=== PATIENT | male | born 1970 | race Caucasian/White ===

== ENCOUNTER → 2017-01-01 | Outpatient (CLI) | payer SELFPAY ==
--- NOTE | 2017-01-01 09:49 | CT ---
EXAMINATION TYPE: CT heart w calcium score DATE OF EXAM: 01/01/2017 8:51 AM COMPARISON: NONE HISTORY: Screening for cardiovascular disorder. 213.9 CT DLP: 67.2 mGycm Automated exposure control for dose reduction was used. CT CALCIUM SCORING Coronary calcium is a marker for plaque (fatty deposits) in a blood vessel or atherosclerosis (harden ing of the arteries). The presence and amount of calcium detected in a coronary artery by the CT sca n, indicates the presence and amount of atherosclerotic plaque. These calcium deposits appear years before the development of heart disease symptoms such as chest pain and shortness of breath. A calcium score is computed for each of the coronary arteries based upon the volume and density of th e calcium deposits. This can be referred to as your calcified plaque burden. It does not correspond directly to the percentage of narrowing in the artery but does correlate with the severity of the un derlying coronary atherosclerosis. PROCEDURE TECHNIQUE - Prospective Gating was used. Slice thickness: 3mm. Density threshold (HU): 130, Pixel threshold: 3, Algorithm: discrete. RESULTS Region: LM Calcium Score ([place]at[place]): 0 Volume (mm3): 0 Mass (g): 0 Region: RCA Calcium Score ([place]at[place]): 0 Volume (mm3): 0 Mass (g): 0 Region: LAD Calcium Score ([place]at[place]): 0 Volume (mm3): 0 Mass (g): 0 Region: CX Calcium Score ([place]at[place]): 15 Volume (mm3): 15 Mass (g): 3.66 Region: PDA Calcium Score ([place]): NA Volume (mm3): NA Mass (g): NA Region: Other1 Calcium Score ([place]): NA Volume (mm3): NA Mass (g): NA Region: Other2 Calcium Score ([place]): NA Volume (mm3): NA Mass (g): NA Region: Other 3 Calcium Score ([place]at[place]): NA Volume (mm3): NA Mass (g): NA Total: Calcium Score (Agatston): 15 Volume (mm3): 15 Mass (g): 3.66 TOTAL CALCIUM SCORE: 15 OTHER: The lungs are clear. Visualized mediastinum is unremarkable. IMPRESSION: Calcium Score: Calcium score 15 Implication: definite at least mild atherosclerotic plaque. Risk of Coronary Artery Disease: Mild or minimal coronary narrowings likely.
== END | disposition home or self-care (01) ==
LOC: RADXRMAIN 07:39
PROVIDERS: ATTEND Radiology Diagnostic Radiology
DX: Z53.9 Procedure and treatment not carried out, unspecified reason (principal)

== ENCOUNTER → 2018-09-10 | Outpatient (CLI) | payer BC ==
--- NOTE | 2018-09-10 14:12 | MR ---
EXAMINATION TYPE: MR knee LT wo con DATE OF EXAM: 09/10/2018 COMPARISON: None HISTORY: 48-year-old male Left knee pain TECHNIQUE: Multiplanar, multisequence imaging of the left knee is performed without IV contrast. FINDINGS: There is ACL rupture. Corresponding bone bruises of pivot shift injury with small area of focal edema along the mid lateral femoral condyle and impaction injury along the posterior lip of the lateral ti bial plateau. There is extensive soft tissue thickening and edema along the MCL. Superficial MCL fibers remain inta ct. The PCL is intact. There is tear with hemorrhage and edema involving the popliteus muscle and fluid tracking posterior t o the popliteus muscle and tip of the fibular head. However, there is no abnormal edema involving the fibular head itself. The conjoined tendon including the true LCL and the biceps femoris tendon are i ntact. Iliotibial band insertion is intact. The proximal popliteal tendon is intact. Lateral meniscus and lateral compartment articular cartilage are maintained. There is a large bucket-handle tear of the medial meniscus with flipped fragment located centrally ad jacent to the torn ACL. There is minimal superficial cartilage irregularity along the mid weightbeari ng aspect of the medial femoral condyle and moderate focal irregular cartilage loss along the mid ant erior aspect of the medial femoral condyle measuring 7 x 8 mm. The patellofemoral compartment articular cartilage is maintained. [id number] knee joint effusion with prominent tracking deep soft tissue edema. Additional supe rficial soft tissue swelling especially anteriorly along the knee. No sizable Dumont's cyst. Extensor mechanism remains intact but with areas of tendinosis along the quadriceps tendon. Minimal i ntrasubstance tearing at the insertion is noted, for example, coronal PD FS image 4. Normal popliteal artery anatomy and muscle bulk. No suspicious bone marrow replacement. IMPRESSION: 1. Kissing contusions of pivot shift injury and corresponding ACL rupture. 2. Moderate strain with tear and hemorrhage involving the popliteus muscle and prominent fluid tracki ng behind the popliteus muscle and tip of the fibular head. Underlying posterolateral corner injury i s suggested. The LCL proper and biceps femoris remain intact. 3. Grade 2 MCL sprain. 4. Large bucket-handle tear medial meniscus with flipped fragment located centrally. 5. Small to moderate knee joint effusion and extensive deep and superficial soft tissue swelling. 6. Insertional quadriceps tendinosis. 7. A focal 8 mm area of moderate chondromalacia along the mid anterior aspect of the medial femoral c ondyle relating to mild overall degenerative change in the medial compartment.
== END | disposition home or self-care (01) ==
LOC: RADMRIMAIN 12:51
PROVIDERS: ATTEND Radiology Diagnostic Radiology
DX: S83.412A Sprain of medial collateral ligament of left knee, initial encounter (principal); S83.212A Bucket-handle tear of medial meniscus, current injury, left knee, initial encounter; M17.12 Unilateral primary osteoarthritis, left knee; M94.262 Chondromalacia, left knee; M76.892 Other specified enthesopathies of left lower limb, excluding foot

== ENCOUNTER 2019-02-04 14:33 | Day surgery (SDC) | payer BC ==
--- NOTE | 2019-02-03 17:02 | HP ---
HISTORY AND PHYSICAL DATE OF SURGERY: 02/04/2019 Seymour Sylvester is a 48-year-old patient seen with a displaced right ankle medial malleolar fracture. I recommended open reduction, internal fixation. Procedure, risks, complications, benefits and recovery were discussed. He was agreeable. Consent was obtained. PAST MEDICAL HISTORY: Noncontributory. SURGICAL HISTORY: Noncontributory. DAILY MEDICATIONS: None. ALLERGIES: NONE. SOCIAL HISTORY: Denies tobacco use. PHYSICAL EVALUATION OF RIGHT ANKLE: There are abrasions along the medial and lateral aspects of the ankle, superficial, with no evidence of any erythema or infective process. There is diffuse ecchymosis. There is tenderness along the medial malleolus, mild to moderate swelling diffusely about the ankle. Limited range of motion. Ankle has some pain. He is able to move his toes with no pain. There is a good perfusion sensation distally. RADIOGRAPHS: Radiographs of the right ankle revealed a displaced medial malleolar fracture. IMPRESSION: Displaced right ankle medial malleolar fracture. PLAN: Open reduction, internal fixation, right ankle medial malleolar fracture. MMODL / IJN: [id number] /
[2019-02-04] MEDS ORDERED: LIDOCAINE 1% 20 ML VIAL (10MG/ML) FOR IV START INTRADERMA PRN (15:02)
[2019-02-04] MEDS ORDERED: ONDANSETRON 4 MG/2 ML VIAL IVP ONE (15:02)
[2019-02-04] MEDS ORDERED: HYDROmorphone 0.5 MG/0.5 ML SYRINGE IVP PRN (15:02)
[2019-02-04] MEDS ORDERED: LACTATED RINGERS 1,000 ML IV SCH (15:02)
[2019-02-04] MEDS ORDERED: SCOPOLAMINE 1.5MG/72HR PATCH TRANSDERM ONE (15:02)
[2019-02-04] MEDS ORDERED: MIDAZOLAM 2 MG/2 ML VIAL IV PRN (15:02)
[2019-02-04] MEDS ORDERED: DEXAMETHASONE SOD PHOSPHATE 10 MG/ML 1 ML VIAL IV ONE (15:02)
[2019-02-04] MEDS ORDERED: LIDOCAINE 1% INJ 10MG/ML (20 ML MDV) ONE (15:22)
[2019-02-04] MEDS ORDERED: PROPOFOL 10 MG/ML 20 ML VIAL IV ONE (15:22)
[2019-02-04] MEDS ORDERED: fentaNYL (PF) 50 MCG/ML 2 ML AMP ONE (15:22)
[2019-02-04] MEDS ORDERED: MIDAZOLAM 2 MG/2 ML VIAL ONE (15:22)
[2019-02-04] MEDS ORDERED: KETOROLAC 30 MG/ML 1 ML VIAL ONE (15:22)
[2019-02-04] MEDS ORDERED: fentaNYL (PF) 50 MCG/ML 2 ML AMP IVP ONE (15:30)
[2019-02-04] MEDS ORDERED: BUPIVACAINE (PF) 0.5% 30 ML VIAL SQ ONE (16:20)
[2019-02-04] MEDS ORDERED: LACTATED RINGERS 1,000 ML IV ONE (16:20)
[2019-02-04] MEDS ORDERED: NEOMYCIN-BACITRACIN-POLY OINT 14 GM TUBE TOPICAL ONE (16:25)
--- NOTE | 2019-02-04 16:38 | P.PN ---
Progress Note - Text Progress Note Date: 02/04/19 This is addendum to the history and physicalleft ankle
--- NOTE | 2019-02-04 16:43 | P.OP ---
Date of Procedure: 02/04/19 Preoperative Diagnosis: Displaced left ankle medial malleolar fracture Postoperative Diagnosis: Same Procedure(s) Performed: Open reduction internal fixation left ankle medial malleolus Implants: 235 millimeter 4.0 partially-threaded cancellus screws Anesthesia: ROSE MARY local Surgeon: Nimesh Mai Slate Trimmer #1: Sanchez Armijo Estimated Blood Loss (ml): 10 Pathology: none sent Condition: stable Disposition: PACU Indications for Procedure: 48-year-old patient seen with a displaced left ankle medial malleolar fracture. I recommended open reduction and internal fixation. Patient was agreeable and consent was obtained. Operative Findings: See description of procedure Description of Procedure: The patient was taken to the operative suite. The patient underwent a general anesthetic by the department of anesthesia. The patient received preoperative IV antibiotics. A well-padded tourniquet placed proximal left thigh. Left lower extremity was prepped and draped in the normal sterile orthopedic fashion. The extremity was elevated and tourniquet insufflated to 300. An incision was made over the area of the medial malleolus. Dissection was taken down to the medial malleolar fracture. The fracture was identified. Hemarthrosis was evacuated. The fracture was now anatomically aligned and secured. I now made 2 drill holes through the medial malleolus and introduced 2-35 mm partially- threaded screws which maintained anatomic alignment of the fracture. C-arm was brought in confirming anatomic alignment and positioning of the fracture and hardware. Spot films of hand document that. The wound was irrigated. The subcutaneous soft tissues were approximated with 2-0 Vicryl. The skin was with 3-0 nylon. The incision site was infiltrated with 11 mL half percent Marcaine. Sterile dressings were applied. The tourniquet was released and immediate capillary refill the entire foot and toes noted. The patient was placed into a modified posterior splint with ankle in neutral position. The patient was then awakened and transferred to recovery stable condition. Ty JONES assisted the procedure.
[2019-02-04 16:51] VITALS: TEMP 97.6
[2019-02-04 17:35] VITALS: RESP 18
[2019-02-04 17:57] VITALS: BP 146/75; PULSE 66
--- NOTE | 2019-02-05 06:29 | FL ---
EXAMINATION TYPE: FL guidance operating room, XR ankle complete LT DATE OF EXAM: 02/04/2019 CLINICAL HISTORY: Left ankle fracture. TECHNIQUE: Fluoroscopy. Complete left ankle x-ray. COMPARISON: None. FINDINGS: Fluoroscopic guidance was provided during open reduction and internal fixation procedure p erformed by Dr. Mai. A total of 13 seconds of fluoroscopic time was utilized during the proced ure and 3 spot intraoperative images are acquired. Intraoperative images obtained show placement of 2 fixating screws through transverse fracture medial malleolus, satisfactory alignment is seen on intraoperative images obtained. IMPRESSION: As Above.
== END 2019-02-04 18:05 | disposition home or self-care (01) ==
LOC: OR 14:33
PROVIDERS: ATTEND Orthopaedic Surgery
DX: S82.52XA Displaced fracture of medial malleolus of left tibia, initial encounter for closed fracture (principal); X58.XXXA Exposure to other specified factors, initial encounter; K21.9 Gastro-esophageal reflux disease without esophagitis
CPT/HCPCS: 73610; 27766; C1713; J2250; J1100; J2405; J2001; J3010; J1885; J2704

== ENCOUNTER → 2019-12-28 | Outpatient (CLI) | payer BC ==
--- NOTE | 2019-12-29 10:59 | MR ---
EXAMINATION TYPE: MR knee RT wo con DATE OF EXAM: 12/28/2019 COMPARISON: None HISTORY: 49-year-old male Right Knee Trauma/ Pain Jumped off retaining wall felt pain in Knee. Prior ACL tear. TECHNIQUE: Multiplanar, multisequence imaging of the right knee is performed without IV contrast. FINDINGS: Proximal ACL rupture with heterogeneous and disorganized proximal fibers. Supporting signs of ACL rup ture and instability include anterior tibial translation of 11 mm (sagittal series 201 image 22) and positive PCL line sign (sagittal series 201 image 15). There are corresponding kissing contusions of pivot shift injury along the mid lateral femoral condyl e and posterior lip lateral tibial plateau where there is a corresponding nondepressed subchondral im paction fracture measuring 2.1 cm wide and 8 mm AP. Large countercoup bone bruise involving the posterior lip of the medial tibial plateau with a smaller nondepressed subchondral impaction fracture measuring 1.2 cm wide and 1.1 cm AP. PCL is intact. Slight edema on either side of the intact MCL. The iliotibial band, LCL proper, and biceps femoris insertion are intact. The popliteus also appears intact. However, there is soft tissue edema along the posterolateral corner adjacent to the tibial pl ateau. Complex tear extending throughout the medial meniscus with a bucket-handle fragment flipped into the intercondylar notch region. Some focal moderate chondromalacia measuring 8 x 6 mm is present along th e anterior weightbearing aspect of the medial femoral condyle and mild chondromalacia along the mid w eightbearing aspect. Some associated degenerative subchondral signal change. While the lateral meniscus appears intact, the meniscocapsular ligaments are not clearly seen. Overal l lateral compartment articular cartilage is maintained. Some mild superficial cartilage irregularity along the medial patellar facet with some reactive subch ondral signal change. Patellofemoral compartment articular cartilage is otherwise maintained. Extensor mechanism is intact. Moderate knee joint effusion with a leaking, mildly complex Dumont's cyst measuring 6.1 x 3.6 cm. Normal popliteal artery anatomy and muscle bulk. No suspicious bone marrow replacement. IMPRESSION: 1. Proximal ACL rupture with pivot shift coup and countercoup impaction injuries. 2. Associated complex tear throughout the medial meniscus with a bucket-handle fragment flipped into the intercondylar notch. 3. Injury to the meniscocapsular ligaments associated with the lateral meniscus. There is additional soft tissue edema along the posterolateral corner which can be seen in the setting of posterolateral corner injury though the conjoined tendon and popliteus appear intact. 4. Low-grade MCL sprain. 5. Mild overall medial compartment degenerative change. 6. Moderate knee joint effusion and moderate-sized leaking Dumont's cyst.
== END | disposition home or self-care (01) ==
LOC: RADMRIMAIN 08:58
PROVIDERS: ATTEND Radiology Diagnostic Radiology
DX: S83.211A Bucket-handle tear of medial meniscus, current injury, right knee, initial encounter (principal); S83.411A Sprain of medial collateral ligament of right knee, initial encounter; M17.11 Unilateral primary osteoarthritis, right knee; R60.9 Edema, unspecified; M25.461 Effusion, right knee; M71.21 Synovial cyst of popliteal space [Baker], right knee

== ENCOUNTER → 2020-12-14 | Outpatient (CLI) | payer BC ==
[2020-12-14 12:21] LABS: Appearance,Urine Clear (Clear); Bilirubin,Urine Negative (Negative); Blood,Urine Negative (Negative); Color,Urine Light Yellow; Glucose,Urine (UA) Negative (Negative); Ketones,Urine Negative (Negative); Leukocyte Esterase,Urine Negative (Negative); Nitrite,Urine Negative (Negative); Protein,Urine Negative (Negative); Urobilinogen,Urine <2.0 mg/dL (<2.0)
[2020-12-14 20:08] LABS: Basophils # (A) 0.05 X 10*3/uL (0.00-0.10); Basophils % (A) 0.9 %; Eosinophils # (A) 0.13 X 10*3/uL (0.04-0.35); Eosinophils % (A) 2.4 %; HCT 45.7 % (39.6-50.0); HGB 14.6 g/dL (13.0-17.0); Lymphocytes # (A) 1.99 X 10*3/uL (0.90-5.00); Lymphocytes % (A) 37.3 %; MCH 31.5 pg (27.0-32.0); MCHC 31.9 g/dL (32.0-37.0); MCV 98.7 fL (80.0-97.0); Mean Platelet Volume 10.3 fL (9.5-12.2); Monocytes # (A) 0.44 X 10*3/uL (0.20-1.00); Monocytes % (A) 8.2 %; Neutrophils # (A) 2.71 X 10*3/uL (1.80-7.70); Neutrophils % (A) 50.8 %; Platelet Count 227 X 10*3/uL (140-440); RBC 4.63 X 10*6/uL (4.40-5.60); RDW 12.4 % (11.5-14.5); WBC 5.34 X 10*3/uL (4.50-10.00)
[2020-12-14 22:14] LABS: African American GFR (CKD) 99.8 (60.0-200.0); Albumin 4.8 g/dL (3.80-4.90); Albumin/Globulin Ratio 2.4 (1.60-3.17); Anion Gap 4.6 mmol/L (4.00-12.00); Calcium 9.7 mg/dL (8.7-10.3); Carbon Dioxide 28.4 mmol/L (21.6-31.8); Chol/HDL Ratio 4.36; Non-African American GFR(CKD) 86.2 (60.0-200.0); Potassium 4.5 mmol/L (3.5-5.5); Total Bilirubin 0.6 mg/dL (0.3-1.2); Total Protein 6.8 g/dL (6.2-8.2)
[2020-12-14 22:22] LABS: Prostate Specific Antigen 1.8 ng/mL (0.0-3.5)
== END | disposition home or self-care (01) ==
LOC: LABWHC1 11:45
PROVIDERS: ATTEND Internal Medicine
DX: Z00.00 Encounter for general adult medical examination without abnormal findings (principal); R22.1 Localized swelling, mass and lump, neck; Z12.5 Encounter for screening for malignant neoplasm of prostate
CPT/HCPCS: 36415; 80053; 80061; 81003; 84153; 84443; 85025

== ENCOUNTER → 2021-05-31 | Outpatient (CLI) | payer BC | END | disposition home or self-care (01) | LOC: LABWHC1 07:14 | PROVIDERS: ATTEND Radiology Diagnostic Radiology | DX: Z20.822 Contact with and (suspected) exposure to COVID-19 (principal) | CPT/HCPCS: 87635; C9803 ==